=== PATIENT | male | born 1985 | race Hispanic/Latino ===

== ENCOUNTER 2020-06-10 11:41 | Emergency (ER) | payer OTHER ==
[2020-06-10] MEDS ORDERED: Ketorolac Tromethamine 30 MG/ML VIAL ONE (13:11)
[2020-06-10] MEDS ORDERED: Furosemide 40 MG TAB PO SCH (19:15)
[2020-06-10 19:46] LABS: INR-International Normal Ratio 1.7; Prothrombin Time 20.4 sec (12.0-14.7)
[2020-06-10] MEDS ORDERED: Warfarin Sodium 10 MG TAB PO SCH (20:00)
== END 2020-06-11 13:47 ==
LOC: ERS 11:41
DX: N43.3 Hydrocele, unspecified (principal); E66.9 Obesity, unspecified; Z79.899 Other long term (current) drug therapy
CPT/HCPCS: 36415; 76870; 85610; 93976; 96372; J1885